=== PATIENT | male | born 1975 | race Native Hawaiian/Other Pacific Islander ===

== ENCOUNTER 2022-06-29 12:41 | Emergency (ER) | payer MEDICAID ==
[~2022-06-29] VITALS: Ht 185.4 cm; Wt 95.9 kg
[2022-06-29 13:19] VITALS: BP 121/54
--- NOTE | 2022-06-29 13:51 | NUR ---
MAGUE CRYSTAL IN TRIAGE FOR EVAL
--- NOTE | 2022-06-29 13:52 | NUR ---
PRESENTS FOR REFILL FOR LEVOTHYROXINE 0.025MG, OLANZAPINE 10MG BID, DIPHENHYDRAMINE 25MG, SERTRALINE 50MG HS NKA PMH: HYPOTHYROID, DEPRESSION, BIPOLAR
[2022-06-29] MEDS ORDERED: SERT50TA PO (14:09)
[2022-06-29] MEDS ORDERED: DIPH25TA53 PO (14:09)
[2022-06-29] MEDS ORDERED: OLAN10TA70 PO (14:09)
[2022-06-29] MEDS ORDERED: SYN.075 PO (14:09)
[2022-06-29 14:21] VITALS: BP 121/54
--- NOTE | 2022-06-29 14:21 | NUR ---
Patient discharged with v/s stable. Written and verbal after care instructions ABOUT MED REFILL AND BIPOLAR TYPE 1 given and explained. Patient alert, oriented and verbalized understanding of instructions. Ambulatory with steady gait. All questions addressed prior to discharge. ID band removed. Patient advised to follow up with PMD. Rx of BENADRYL, OLANZAPINE, SETRALINE, SYNTHROID given. Patient educated on indication of medication including possible reaction and side effects. Opportunity to ask questions provided and answered.
== END 2022-06-29 14:21 | disposition home or self-care (01) ==
LOC: MED 12:41
DX: F31.9 Bipolar disorder, unspecified (principal); E03.9 Hypothyroidism, unspecified; Z76.0 Encounter for issue of repeat prescription
CPT/HCPCS: 99283